=== PATIENT | male | born 1985 | race Caucasian/White ===

== ENCOUNTER 2021-05-17 15:53 | Emergency (ER) | payer MEDICARE ==
[2021-05-17] MEDS ORDERED: Acetaminophen 500 MG TAB ONE (16:29)
[2021-05-17] MEDS ORDERED: Ketorolac Tromethamine 30 MG/ML VIAL ONE (17:03)
== END 2021-05-17 17:06 | disposition home or self-care (01) ==
LOC: CSHERS 15:53
DX: R51.9 Headache, unspecified (principal); R00.0 Tachycardia, unspecified
CPT/HCPCS: 93005; 96372; J1885